=== PATIENT | male | born 1980 | race Caucasian/White ===

== ENCOUNTER 2021-04-06 15:58 | Emergency (ER) | payer SELFPAY ==
[~2021-04-06] VITALS: Ht 162.6 cm; Wt 68.0 kg
[2021-04-06] MEDS ORDERED: IBUPROFEN 600MG TABLET PO STA (16:11)
[2021-04-06 16:38] VITALS: BP 138/88
[2021-04-06] MEDS ORDERED: NAPR-681 PO (17:05)
== END 2021-04-06 17:27 | disposition home or self-care (01) ==
LOC: ER 15:58
DX: R07.81 Pleurodynia (principal)
CPT/HCPCS: 71045; 93005; 99283